=== PATIENT | male | born 1935 | race Caucasian/White ===

== ENCOUNTER 2018-09-19 13:14 | Inpatient (IN) | payer MEDICARE, OTHER ==
[~2018-09-19] VITALS: Ht 177.8 cm; Wt 73.5 kg
[2018-09-19] MEDS ORDERED: SODIUM CHLORIDE FLUSH 10ML SYR IVF ONE (13:30)
[2018-09-19 13:42] LABS: BASOPHILS % (AUTO) 0 % (0-1); EOSINOPHILS % (AUTO) 0 % (1-7); LYMPHOCYTES % (AUTO) 4 % (22-44); MD NO; MEAN CORPUSCULAR HEMOGLOBIN 31.7 pg (27.5-34.5); MEAN CORPUSCULAR HGB CONC 33.4 g/dL (33.2-36.2); MEAN CORPUSCULAR VOLUME 94.8 fL (81-97); MEAN PLATELET VOLUME 7.6 fL (7.4-10.4); MONOCYTES # (AUTO) 0.33 x10^3/uL (0.2-0.8); MONOCYTES % (AUTO) 3 % (2-9); NEUTROPHILS # (AUTO) 10.69 x10^3/uL (1.8-6.8); NEUTROPHILS % (AUTO) 93 % (42-75); PLATELET COUNT 229 x10^3/uL (130-400); RED BLOOD COUNT 4.89 x10^6/uL (4.38-5.82); RED CELL DISTRIBUTION WIDTH 14.4 % (9.4-14.8)
[2018-09-19 13:51] LABS: INTERNATIONAL NORMALIZED RATIO 1.04 (0.93-1.1); PROTHROMBIN TIME 10.7 Seconds (9.6-11.5)
[2018-09-19 13:54] LABS: ALANINE AMINOTRANSFERASE 118 U/L (12-78); ALBUMIN 3.9 g/dL (3.4-5.0); ANION GAP 12 mmol/L (5-15); CALCIUM 8.9 mg/dL (8.5-10.1); CHLORIDE 105 mmol/L (98-107); CREATININE 1.36 mg/dL (0.7-1.3)
[2018-09-19 13:56] LABS: ALKALINE PHOSPHATASE 101 U/L (45-117); BILIRUBIN,TOTAL 0.7 mg/dL (0.2-1.0); TOTAL PROTEIN 7.8 g/dL (6.4-8.2)
[2018-09-19] MEDS ORDERED: SODIUM CHLORIDE 0.9% 1,000ML IVBOLUS ONE (14:30)
[2018-09-19] MEDS ORDERED: OMNIPAQUE 350 MG/ML, 100ML BOTTLE ONE (14:48)
[2018-09-19] MEDS ORDERED: HEPARIN 5,000 UNITS/ML, 1ML IV ONE ×2 (15:30→17:00)
[2018-09-19] MEDS ORDERED: HEPARIN 25,000 UNITS/500ML PMX 500 ML IV PRN ×3 (15:30→17:00)
[2018-09-19] MEDS ORDERED: HEPARIN wt. based STROKE protocol MC PRN (15:30)
[2018-09-19] MEDS ORDERED: HEPARIN 5,000 UNITS/ML, 1ML IV PRN ×2 (15:30→17:00)
[2018-09-19] MEDS ORDERED: TAMS-11 PO (15:40)
[2018-09-19] MEDS ORDERED: GABAPENTIN 300 MG CAPSULE PO PRN (16:00)
[2018-09-19] MEDS ORDERED: POLYETHYLENE GLYCOL 17 GM PACKET PO PRN (16:00)
[2018-09-19] MEDS ORDERED: LABETALOL 5MG/ML, 20ML IV PRN (16:00)
[2018-09-19] MEDS ORDERED: DOCUSATE 100 MG CAPSULE PO PRN (16:00)
[2018-09-19 16:05] LABS: MICROSCOPIC INDICATED
[2018-09-19 16:05] LABS: HCT (SEDRATE) 46.4 % (39.2-51.8)
[2018-09-19 16:16] LABS: CULTURE INDICATED? NO
[2018-09-19 16:20] LABS: TROPONIN I 0.047 ng/mL (0.000-0.045)
[2018-09-19 16:45] LABS: HEMOGLOBIN A1C 5.7 % (4.2-6.3)
[2018-09-19 17:04] VITALS: BP 150/96
[2018-09-19] MEDS: SODIUM CHLORIDE 0.9% 1,000 ML IV SCH (18:40)
[2018-09-19 20:03] VITALS: BP 154/92
[2018-09-19] MEDS: ATORVASTATIN 40 MG TABLET PO SCH (20:42)
[2018-09-19 23:21] LABS: TROPONIN I 0.086 ng/mL (0.000-0.045)
[2018-09-20 01:31] VITALS: BP 129/86
[2018-09-20] MEDS: SODIUM CHLORIDE 0.9% 1,000 ML IV SCH ×3 (04:24→21:54)
[2018-09-20 05:20] LABS: BASOPHILS # (AUTO) 0.01 x10^3/uL (0-0.1); BASOPHILS % (AUTO) 0 % (0-1); EOSINOPHILS # (AUTO) 0.03 x10^3/uL (0-0.4); EOSINOPHILS % (AUTO) 0 % (1-7); LYMPHOCYTES % (AUTO) 9 % (22-44); MD NO; MEAN CORPUSCULAR HEMOGLOBIN 32.4 pg (27.5-34.5); MEAN CORPUSCULAR HGB CONC 33.9 g/dL (33.2-36.2); MEAN CORPUSCULAR VOLUME 95.7 fL (81-97); MEAN PLATELET VOLUME 7.6 fL (7.4-10.4); MONOCYTES # (AUTO) 0.83 x10^3/uL (0.2-0.8); MONOCYTES % (AUTO) 7 % (2-9); NEUTROPHILS # (AUTO) 10.37 x10^3/uL (1.8-6.8); NEUTROPHILS % (AUTO) 84 % (42-75); PLATELET COUNT 222 x10^3/uL (130-400); RED BLOOD COUNT 5.07 x10^6/uL (4.38-5.82); RED CELL DISTRIBUTION WIDTH 14.7 % (9.4-14.8)
[2018-09-20 05:27] LABS: ALANINE AMINOTRANSFERASE 99 U/L (12-78); ALBUMIN 3.6 g/dL (3.4-5.0); ANION GAP 10 mmol/L (5-15); CALCIUM 8.6 mg/dL (8.5-10.1); CHLORIDE 109 mmol/L (98-107); CREATININE 1.24 mg/dL (0.7-1.3)
[2018-09-20 05:32] LABS: ALKALINE PHOSPHATASE 97 U/L (45-117); BILIRUBIN,TOTAL 0.8 mg/dL (0.2-1.0); CHOL/HDL RATIO 3.3; CHOLESTEROL, TOTAL 202 mg/dL (140-239); HDL CHOL % 31 % (26-37); HDL CHOLESTEROL (DIRECT) 62 mg/dL (40-60); LDL CHOLESTEROL,CALCULATED 126 mg/dL (54-169); TOTAL PROTEIN 7.5 g/dL (6.4-8.2); TRIGLYCERIDES 69 mg/dL (50-200); TROPONIN I 0.091 ng/mL (0.000-0.045); VLDL CHOLESTEROL 14 mg/dL (0-25)
[2018-09-20 07:20] VITALS: BP 135/95
[2018-09-20] MEDS ORDERED: HEPARIN 5,000 UNITS/ML, 1ML IV PRN (08:00)
[2018-09-20] MEDS ORDERED: HEPARIN 25,000 UNITS/500ML PMX 500 ML IV PRN ×3 (08:00→15:25)
[2018-09-20] MEDS ORDERED: TAMSULOSIN 0.4 MG CAP.ER.24H PO SCH (09:00)
[2018-09-20] MEDS ORDERED: DILTIAZEM 5 MG/ML, 5ML IVPush ONE (11:00)
[2018-09-20] MEDS ORDERED: MAGNESIUM SULFATE PMX 2GM/50ML 50 ML IV ONE ×2 (11:00→14:00)
[2018-09-20 12:49] LABS: TROPONIN I 0.077 ng/mL (0.000-0.045)
[2018-09-20 14:00] VITALS: BP 114/74
[2018-09-20] MEDS ORDERED: DIGOXIN 0.25 MG/ML, 2ML IVPush ONE (14:00)
[2018-09-20] MEDS: METOPROLOL TARTRATE 50 MG TABLET PO SCH ×2 (14:44→22:00)
[2018-09-20] MEDS: POTASSIUM CHLORIDE 20 MEQ TAB.ER.PRT PO SCH (18:16)
[2018-09-20 19:54] VITALS: BP 142/83
[2018-09-20] MEDS: ATORVASTATIN 40 MG TABLET PO SCH (22:00)
[2018-09-20] MEDS: TAMSULOSIN 0.4 MG CAP.ER.24H PO SCH (22:00)
[2018-09-21 01:00] VITALS: BP 137/89
[2018-09-21 02:31] LABS: BASOPHILS # (AUTO) 0.06 x10^3/uL (0-0.1); BASOPHILS % (AUTO) 1 % (0-1); EOSINOPHILS % (AUTO) 2 % (1-7); LYMPHOCYTES # (AUTO) 1.38 x10^3/uL (1-3.4); LYMPHOCYTES % (AUTO) 14 % (22-44); MD NO; MEAN CORPUSCULAR HEMOGLOBIN 32.2 pg (27.5-34.5); MEAN CORPUSCULAR HGB CONC 33.9 g/dL (33.2-36.2); MEAN PLATELET VOLUME 7.7 fL (7.4-10.4); MONOCYTES # (AUTO) 0.94 x10^3/uL (0.2-0.8); MONOCYTES % (AUTO) 10 % (2-9); NEUTROPHILS # (AUTO) 7.06 x10^3/uL (1.8-6.8); NEUTROPHILS % (AUTO) 73 % (42-75); PLATELET COUNT 212 x10^3/uL (130-400); RED BLOOD COUNT 5.07 x10^6/uL (4.38-5.82)
[2018-09-21 02:35] LABS: ALBUMIN 3.1 g/dL (3.4-5.0); ANION GAP 10 mmol/L (5-15); CALCIUM 8.6 mg/dL (8.5-10.1); CHLORIDE 109 mmol/L (98-107)
[2018-09-21 02:39] LABS: ALANINE AMINOTRANSFERASE 75 U/L (12-78); ALKALINE PHOSPHATASE 82 U/L (45-117); BILIRUBIN,TOTAL 0.5 mg/dL (0.2-1.0); CREATININE 1.44 mg/dL (0.7-1.3); TOTAL PROTEIN 6.8 g/dL (6.4-8.2)
[2018-09-21] MEDS: SODIUM CHLORIDE 0.9% 1,000 ML IV SCH ×3 (06:34→23:43)
[2018-09-21] MEDS: METOPROLOL TARTRATE 50 MG TABLET PO SCH ×3 (06:34→22:03)
[2018-09-21] MEDS: APIXABAN 5 MG TABLET PO SCH ×2 (08:00→22:03)
[2018-09-21] MEDS: POTASSIUM CHLORIDE 20 MEQ TAB.ER.PRT PO SCH (08:00)
[2018-09-21] MEDS: TAMSULOSIN 0.4 MG CAP.ER.24H PO SCH ×2 (08:00→22:03)
[2018-09-21 12:11] VITALS: BP 111/85
[2018-09-21 15:09] VITALS: BP 132/87
[2018-09-21 18:39] VITALS: BP 127/86
[2018-09-21] MEDS: ATORVASTATIN 40 MG TABLET PO SCH (22:03)
[2018-09-22 02:09] VITALS: BP 145/75
[2018-09-22 05:41] LABS: BASOPHILS # (AUTO) 0.02 x10^3/uL (0-0.1); BASOPHILS % (AUTO) 0 % (0-1); EOSINOPHILS # (AUTO) 0.29 x10^3/uL (0-0.4); EOSINOPHILS % (AUTO) 3 % (1-7); LYMPHOCYTES # (AUTO) 1.48 x10^3/uL (1-3.4); LYMPHOCYTES % (AUTO) 17 % (22-44); MD NO; MEAN CORPUSCULAR HEMOGLOBIN 32.4 pg (27.5-34.5); MEAN CORPUSCULAR VOLUME 95.4 fL (81-97); MEAN PLATELET VOLUME 7.8 fL (7.4-10.4); MONOCYTES # (AUTO) 0.95 x10^3/uL (0.2-0.8); MONOCYTES % (AUTO) 11 % (2-9); NEUTROPHILS # (AUTO) 5.97 x10^3/uL (1.8-6.8); NEUTROPHILS % (AUTO) 69 % (42-75); PLATELET COUNT 191 x10^3/uL (130-400); RED BLOOD COUNT 4.96 x10^6/uL (4.38-5.82); RED CELL DISTRIBUTION WIDTH 14.7 % (9.4-14.8)
[2018-09-22 05:49] LABS: ANION GAP 9 mmol/L (5-15); CALCIUM 8.5 mg/dL (8.5-10.1); CHLORIDE 111 mmol/L (98-107)
[2018-09-22] MEDS: METOPROLOL TARTRATE 50 MG TABLET PO SCH ×3 (05:59→21:54)
[2018-09-22 07:41] VITALS: BP 130/86
[2018-09-22] MEDS: APIXABAN 5 MG TABLET PO SCH ×2 (09:02→19:57)
[2018-09-22] MEDS: TAMSULOSIN 0.4 MG CAP.ER.24H PO SCH ×2 (09:02→19:57)
[2018-09-22 13:40] VITALS: BP 124/72
[2018-09-22 19:38] VITALS: BP 131/81
[2018-09-22] MEDS: ATORVASTATIN 40 MG TABLET PO SCH (19:57)
[2018-09-23 00:46] VITALS: BP 138/93
[2018-09-23] MEDS: METOPROLOL TARTRATE 50 MG TABLET PO SCH (05:28)
[2018-09-23 06:09] LABS: BASOPHILS # (AUTO) 0.02 x10^3/uL (0-0.1); BASOPHILS % (AUTO) 0 % (0-1); EOSINOPHILS # (AUTO) 0.25 x10^3/uL (0-0.4); EOSINOPHILS % (AUTO) 3 % (1-7); LYMPHOCYTES # (AUTO) 1.33 x10^3/uL (1-3.4); LYMPHOCYTES % (AUTO) 15 % (22-44); MD NO; MEAN CORPUSCULAR HEMOGLOBIN 32.4 pg (27.5-34.5); MEAN CORPUSCULAR HGB CONC 33.9 g/dL (33.2-36.2); MEAN CORPUSCULAR VOLUME 95.4 fL (81-97); MEAN PLATELET VOLUME 7.8 fL (7.4-10.4); MONOCYTES # (AUTO) 0.82 x10^3/uL (0.2-0.8); MONOCYTES % (AUTO) 9 % (2-9); NEUTROPHILS # (AUTO) 6.33 x10^3/uL (1.8-6.8); NEUTROPHILS % (AUTO) 72 % (42-75); PLATELET COUNT 202 x10^3/uL (130-400); RED BLOOD COUNT 5.14 x10^6/uL (4.38-5.82); RED CELL DISTRIBUTION WIDTH 14.4 % (9.4-14.8)
[2018-09-23 06:23] LABS: CHLORIDE 108 mmol/L (98-107)
[2018-09-23 06:28] LABS: ANION GAP 9 mmol/L (5-15); CALCIUM 8.8 mg/dL (8.5-10.1); CREATININE 1.14 mg/dL (0.7-1.3)
[2018-09-23 07:09] VITALS: BP 142/83
[2018-09-23] MEDS: APIXABAN 5 MG TABLET PO SCH ×2 (08:53→20:00)
[2018-09-23] MEDS: TAMSULOSIN 0.4 MG CAP.ER.24H PO SCH ×2 (08:53→20:00)
[2018-09-23 12:27] VITALS: BP 112/84
[2018-09-23 19:00] VITALS: BP 130/80
[2018-09-23] MEDS: ATORVASTATIN 40 MG TABLET PO SCH (20:00)
[2018-09-23] MEDS: METOPROLOL TARTRATE 100 MG TABLET PO SCH (20:01)
[2018-09-24] MEDS: ACETAMINOPHEN 325 MG TABLET PO PRN (00:29)
[2018-09-24 01:53] VITALS: BP 135/91
[2018-09-24 06:39] VITALS: BP 146/80
[2018-09-24] MEDS ORDERED: METO-99 PO (07:15)
[2018-09-24] MEDS ORDERED: APIX5TAB PO ×2 (07:15)
[2018-09-24] MEDS ORDERED: ATOR40TA78 PO (07:15)
[2018-09-24] MEDS: METOPROLOL TARTRATE 100 MG TABLET PO SCH ×2 (08:06→21:13)
[2018-09-24] MEDS: APIXABAN 5 MG TABLET PO SCH ×2 (08:07→21:13)
[2018-09-24] MEDS: TAMSULOSIN 0.4 MG CAP.ER.24H PO SCH ×2 (08:07→21:13)
[2018-09-24 12:15] VITALS: BP 127/86
[2018-09-24] MEDS ORDERED: DOCU-131 PO (14:36)
[2018-09-24] MEDS ORDERED: PHEN-582 PO (14:36)
[2018-09-24] MEDS ORDERED: GABA300C10 PO (14:36)
[2018-09-24] MEDS ORDERED: PHENAZOPYRIDINE 100 MG TABLET PO PRN (15:00)
[2018-09-24] MEDS: PHENAZOPYRIDINE 100 MG TABLET PO PRN (15:24)
[2018-09-24 18:45] VITALS: BP 138/95
[2018-09-24 21:11] VITALS: BP 132/77
[2018-09-24] MEDS: ATORVASTATIN 40 MG TABLET PO SCH (21:13)
[2018-09-25 02:01] VITALS: BP 119/79
[2018-09-25 07:00] VITALS: BP 116/78
[2018-09-25] MEDS: TAMSULOSIN 0.4 MG CAP.ER.24H PO SCH ×2 (09:30→21:19)
[2018-09-25] MEDS: METOPROLOL TARTRATE 100 MG TABLET PO SCH ×2 (09:32→21:20)
[2018-09-25] MEDS ORDERED: OMNIPAQUE 350 MG/ML, 150 ML BOTTLE ONE (12:07)
[2018-09-25] MEDS: FINASTERIDE 5 MG TABLET PO SCH (13:31)
[2018-09-25 13:57] VITALS: BP 93/58
[2018-09-25] MEDS ORDERED: SODIUM CHLORIDE 0.9% 1,000 ML IV SCH (15:30)
[2018-09-25 16:11] VITALS: BP 99/62
[2018-09-25] MEDS ORDERED: FENTANYL PF 250 MCG/5ML ONE (18:52)
[2018-09-25] MEDS ORDERED: PROPOFOL 10 MG/ML, 20ML ONE (18:53)
[2018-09-25] MEDS ORDERED: FENTANYL PF 100 MCG/2ML IV PRN (19:30)
[2018-09-25] MEDS ORDERED: HYDROmorphone 1 MG/ML, 1ML IV PRN (19:30)
[2018-09-25] MEDS ORDERED: PROMETHAZINE 25 MG SUPP PR PRN (19:30)
[2018-09-25] MEDS ORDERED: PROMETHAZINE 12.5 MG SUPP PR PRN (19:30)
[2018-09-25] MEDS ORDERED: hydrALAzine 20 MG/ML, 1ML IV PRN (19:30)
[2018-09-25] MEDS ORDERED: MEPERIDINE/PF 25MG/0.5ML IVPush PRN (19:30)
[2018-09-25] MEDS ORDERED: MORPHINE SULFATE 4 MG/ML, 1ML IVPush PRN (19:30)
[2018-09-25] MEDS ORDERED: OXYcodone 5 MG/5 ML ORAL.SOL UDC PO PRN (19:30)
[2018-09-25] MEDS ORDERED: LABETALOL 5MG/ML, 20ML IV PRN (19:30)
[2018-09-25] MEDS ORDERED: ONDANSETRON ODT 8 MG PO PRN (19:30)
[2018-09-25] MEDS ORDERED: ONDANSETRON 2MG/ML, 2ML IV PRN (19:30)
[2018-09-25] MEDS ORDERED: CEFAZOLIN 1,000 MG ONE ×2 (19:34)
[2018-09-25] MEDS ORDERED: SODIUM CHLORIDE 0.9% PF 10ML ONE (19:34)
[2018-09-25] MEDS ORDERED: OXYcodone 5 MG/5 ML ORAL.SOL UDC ONE (20:22)
[2018-09-25 21:07] VITALS: BP 124/69
[2018-09-25] MEDS: ATORVASTATIN 40 MG TABLET PO SCH (21:19)
[2018-09-26 00:30] VITALS: BP 116/68
[2018-09-26 05:27] LABS: CHLORIDE 109 mmol/L (98-107)
[2018-09-26 05:31] LABS: ANION GAP 7 mmol/L (5-15); CREATININE 1.18 mg/dL (0.7-1.3)
[2018-09-26 08:12] VITALS: BP 115/77
[2018-09-26] MEDS: FINASTERIDE 5 MG TABLET PO SCH (09:07)
[2018-09-26] MEDS: METOPROLOL TARTRATE 100 MG TABLET PO SCH ×2 (09:07→20:28)
[2018-09-26] MEDS: TAMSULOSIN 0.4 MG CAP.ER.24H PO SCH ×2 (09:07→20:28)
[2018-09-26] MEDS: APIXABAN 2.5 MG TABLET PO SCH ×2 (12:56→20:28)
[2018-09-26 15:23] VITALS: BP 118/72
[2018-09-26] MEDS ORDERED: PHENYLEPHRINE 10 MG/ML ONE (19:09)
[2018-09-26 20:27] VITALS: BP 130/73
[2018-09-26] MEDS: ATORVASTATIN 40 MG TABLET PO SCH (20:28)
[2018-09-27 00:13] VITALS: BP 122/79
[2018-09-27] MEDS: PHENAZOPYRIDINE 100 MG TABLET PO PRN ×2 (05:29→20:47)
[2018-09-27 05:39] LABS: BASOPHILS # (AUTO) 0.03 x10^3/uL (0-0.1); BASOPHILS % (AUTO) 0 % (0-1); EOSINOPHILS # (AUTO) 0.11 x10^3/uL (0-0.4); EOSINOPHILS % (AUTO) 1 % (1-7); LYMPHOCYTES % (AUTO) 12 % (22-44); MD NO; MEAN CORPUSCULAR HEMOGLOBIN 32.6 pg (27.5-34.5); MEAN CORPUSCULAR HGB CONC 34.1 g/dL (33.2-36.2); MEAN CORPUSCULAR VOLUME 95.6 fL (81-97); MEAN PLATELET VOLUME 7.7 fL (7.4-10.4); MONOCYTES # (AUTO) 0.98 x10^3/uL (0.2-0.8); MONOCYTES % (AUTO) 10 % (2-9); NEUTROPHILS # (AUTO) 7.77 x10^3/uL (1.8-6.8); NEUTROPHILS % (AUTO) 77 % (42-75); PLATELET COUNT 232 x10^3/uL (130-400); RED BLOOD COUNT 4.21 x10^6/uL (4.38-5.82); RED CELL DISTRIBUTION WIDTH 13.7 % (9.4-14.8)
[2018-09-27 05:42] LABS: ANION GAP 6 mmol/L (5-15); CALCIUM 8.2 mg/dL (8.5-10.1); CHLORIDE 108 mmol/L (98-107)
[2018-09-27 05:44] LABS: CREATININE 1.16 mg/dL (0.7-1.3)
[2018-09-27 07:30] VITALS: BP 128/80
[2018-09-27] MEDS: ACETAMINOPHEN 325 MG TABLET PO PRN (08:54)
[2018-09-27] MEDS: METOPROLOL TARTRATE 100 MG TABLET PO SCH ×2 (08:54→20:39)
[2018-09-27] MEDS: FINASTERIDE 5 MG TABLET PO SCH (08:54)
[2018-09-27] MEDS: TAMSULOSIN 0.4 MG CAP.ER.24H PO SCH ×2 (08:55→20:39)
[2018-09-27] MEDS: APIXABAN 2.5 MG TABLET PO SCH ×2 (08:55→20:39)
[2018-09-27] MEDS ORDERED: APIX2.5T PO (09:18)
[2018-09-27 15:52] VITALS: BP 99/60
[2018-09-27 19:39] VITALS: BP 107/75
[2018-09-27] MEDS: ATORVASTATIN 40 MG TABLET PO SCH (20:39)
[2018-09-27 22:19] LABS: CULTURE INDICATED? YES; MICROSCOPIC INDICATED
[2018-09-28 01:15] VITALS: BP 118/82
[2018-09-28 05:24] LABS: BASOPHILS # (AUTO) 0.03 x10^3/uL (0-0.1); BASOPHILS % (AUTO) 0 % (0-1); EOSINOPHILS # (AUTO) 0.18 x10^3/uL (0-0.4); EOSINOPHILS % (AUTO) 2 % (1-7); LYMPHOCYTES # (AUTO) 1.14 x10^3/uL (1-3.4); LYMPHOCYTES % (AUTO) 13 % (22-44); MD NO; MEAN CORPUSCULAR HEMOGLOBIN 32.5 pg (27.5-34.5); MEAN CORPUSCULAR HGB CONC 33.9 g/dL (33.2-36.2); MEAN CORPUSCULAR VOLUME 95.8 fL (81-97); MEAN PLATELET VOLUME 7.8 fL (7.4-10.4); MONOCYTES # (AUTO) 0.98 x10^3/uL (0.2-0.8); MONOCYTES % (AUTO) 11 % (2-9); NEUTROPHILS # (AUTO) 6.64 x10^3/uL (1.8-6.8); NEUTROPHILS % (AUTO) 74 % (42-75); PLATELET COUNT 245 x10^3/uL (130-400); RED BLOOD COUNT 4.14 x10^6/uL (4.38-5.82)
[2018-09-28 07:35] VITALS: BP 108/74
[2018-09-28] MEDS: METOPROLOL TARTRATE 100 MG TABLET PO SCH (08:35)
[2018-09-28] MEDS: APIXABAN 2.5 MG TABLET PO SCH (08:36)
[2018-09-28] MEDS: TAMSULOSIN 0.4 MG CAP.ER.24H PO SCH (08:36)
[2018-09-28] MEDS: FINASTERIDE 5 MG TABLET PO SCH (08:36)
== END 2018-09-28 11:42 | DRG 987 ==
LOC: ED 15:10 → EDIP 15:11 → ED 16:03 → 4EST 16:39
PROVIDERS: ADMIT Hospitalist; ATTEND Hospitalist
PROC: 0V508ZZ Destruction of Prostate, Via Natural or Artificial Opening Endoscopic (ICD-10-PCS; 2018-09-25)
PROC: 0TCB8ZZ Extirpation of Matter from Bladder, Via Natural or Artificial Opening Endoscopic (ICD-10-PCS; principal; 2018-09-25 18:00)
DX: I63.12 Cerebral infarction due to embolism of basilar artery (principal); N17.0 Acute kidney failure with tubular necrosis; G81.91 Hemiplegia, unspecified affecting right dominant side; I24.8 Other forms of acute ischemic heart disease; D68.69 Other thrombophilia; N32.89 Other specified disorders of bladder; I86.8 Varicose veins of other specified sites; R73.9 Hyperglycemia, unspecified; I45.81 Long QT syndrome; N40.1 Benign prostatic hyperplasia with lower urinary tract symptoms; R31.0 Gross hematuria; R27.0 Ataxia, unspecified; R47.1 Dysarthria and anarthria; D72.829 Elevated white blood cell count, unspecified; E83.42 Hypomagnesemia; H55.00 Unspecified nystagmus; I10 Essential (primary) hypertension; I35.8 Other nonrheumatic aortic valve disorders; I48.91 Unspecified atrial fibrillation; K59.00 Constipation, unspecified; M16.0 Bilateral primary osteoarthritis of hip; R33.8 Other retention of urine; Z66 Do not resuscitate; Z79.01 Long term (current) use of anticoagulants; Z86.73 Personal history of transient ischemic attack (TIA), and cerebral infarction without residual deficits; Z87.891 Personal history of nicotine dependence
CPT/HCPCS: 36415; 70496; 70498; 70551; 74178; 80048; 80053; 80061; 81001; 82962; 83036; 83735; 84100; 84443; 84484; 85014; 85018; 85025; 85520; 85610; 85651; 87086; 93005; 93306; 96374; 99291; G0378; J0690; J1644; J2704; J3010; Q9967; 92523-GN; J1160; J2370; J3475; J7030